=== PATIENT | male | born 1945 | race Caucasian/White ===

== ENCOUNTER → 2018-12-01 12:59 | Outpatient (CLI) | payer MEDICARE, SELFPAY ==
[2018-12-01 13:40] LABS: Cholesterol 199 mg/dL (140-199); HDL Cholesterol 50 mg/dL (40-60); LDL Cholesterol Calculated 133 mg/dL (<100); Triglycerides 81 mg/dL (35-150)
[2018-12-01 14:10] LABS: Prostate Specific Antigen Scrn 2.28 ng/mL (0.1-4.0)
[2018-12-01 17:23] LABS: Vitamin D 25 Hydroxy (D3) 15.5 ng/mL (30.0-100.0)
== END ==
PROVIDERS: Visit Provider Student in an Organized Health Care Education/Training Program
DX: E55.9 Vitamin D deficiency, unspecified (principal); Z12.5 Encounter for screening for malignant neoplasm of prostate; E78.2 Mixed hyperlipidemia
CPT/HCPCS: 36415; 80061; 82306; G0103

== ENCOUNTER 2019-02-12 18:54 | Emergency (ER) | payer MEDICARE, SELFPAY ==
[2019-02-12 19:12] VITALS: BP 152/82; PULSE 80; RESP 18; TEMP 36.6; O2SAT 96
--- NOTE | 2019-02-12 19:15 | ED.GENADULT ---
HPI - General Adult General Chief complaint: Trauma Stated complaint: fall about 8-10ft, wound back of head,back pain Time Seen by Provider: 02/12/19 19:11 Source: patient Mode of arrival: Ambulatory Limitations: no limitations History of Present Illness HPI narrative: 73-year-old male not on anticoagulation here for evaluation of injuries that he sustained when he fell off of/through the a deck that he was working on. He did hit his head because he has a laceration on back of his head. He does not report any loss of consciousness. Arrived by private vehicle. Was complaining of abdominal pain right-sided chest pain. Does have bruising to his left arm. No chest pain or shortness of breath. Related Data Home Medications Medication Instructions Recorded Confirmed ASPIRIN CHEW - 81 mg PO Q DAY #0 04/26/06 09/29/18 (ASPIRIN) Allergies Allergy/AdvReac Type Severity Reaction Status Date / Time Penicillins Allergy Mild rash Verified 09/29/18 13:35 bismuth Allergy Mild rash Uncoded 09/29/18 13:36 Review of Systems Constitutional Constitutional: Denies fever(s) and Denies headache(s) Eyes Eyes: Denies change in vision ENT Ears, Nose, Mouth, and Throat: Denies headache(s), Reports neck pain and Denies sore throat Cardiovascular Cardiovascular: Denies chest pain and Denies dyspnea Comments: Right-sided lateral chest wall pain Respiratory Respiratory: Denies dyspnea Gastrointestinal Gastrointestinal: Denies abdominal pain, Denies nausea and Denies vomiting Genitourinary Genitourinary: Denies dysuria Musculoskeletal Musculoskeletal: Reports back pain, Reports myalgias (Left forearm), Denies arthralgias and Reports neck pain Integumentary/Breasts Comments: Bruising the left forearm laceration the back that had Neurologic Neurologic: Denies behavioral changes and Denies headache(s) Psychiatric Psychiatric: Denies behavioral changes Hematologic/Lymphatic Hematologic/Lymphatic: Denies easy bleeding and Denies easy bruising Patient History Medical History Benign prostatic hyperplasia (Chronic ~2009) Cataracts, bilateral (Chronic ~2005) Chicken pox (Resolved ~1954) Colon polyps (Chronic ~2005) Fractures (Resolved) Hemorrhoid (Chronic) Measles (Resolved ~1954) Mumps (Resolved ~1954) Stroke (Chronic ~1995) Surgical History Anesthesia (Resolved) Family History Father Stroke Mother History of heart disease Grandfather Diabetes mellitus Grandmother Cancer Grandfather Cancer Grandmother Polio Social History Smoking Status: Never smoker alcohol intake: current (occasionally) substance use type: does not use Exam Initial Vital Signs Initial Vital Signs: Vital Signs Temperature 97.9 F 02/12/19 19:12 Pulse Rate 80 02/12/19 19:12 Respiratory Rate 18 02/12/19 19:12 Blood Pressure 152/82 H 02/12/19 19:12 Pulse Oximetry 96 02/12/19 19:12 Const General: cooperative, comfortable, well developed and well groomed Orientation: alert, awake and oriented x3 HENMT Head: laceration Ears: hearing grossly normal bilaterally Nose: external nose normal Face and sinus: normal facial exam Mouth: oral mucosae normal Eyes Pupils: PERRL Chest Chest: normal inspection of the chest, No crepitus and tenderness (Right lateral chest wall) Resp Effort & Inspection: normal respiratory effort Auscultation: clear to auscultation bilaterally Cardio Rate: regular rate Rhythm: regular rhythm Pulses: radial pulses present GI Inspection: distended Palpation: soft, No firm and tender (Diffusely tender) Back/Spine/Pelvis Cervical Spine: No collar present and cervical spinal tenderness Thoracic/Lumbar Spine: thoracic spinal tenderness and No lumbar spinal tenderness Skin Other: Patient with a palm size area bruising to the left volar aspect of his forearm. Patient with a 3 cm laceration to the occipital portion of his scalp. Neuro General: alert and oriented x3 Cranial Nerves: CN's II-XI intact bilaterally Cognition: normal cognition Speech: speech normal Sensory Exam: no sensory deficits noted Extrem Other: Pelvis stable, lower extremities unremarkable. Right upper extremity unremarkable. Patient has full range of motion of the left shoulder left elbow and left wrist Psych Appearance: grossly normal and well kempt Procedures Laceration Repair Laceration 1: Site: scalp Size (cm): 3 Description: irregular Depth: simple, single layer Local Anesthetic: lidocaine 1% Amount of anesthesia used (mL): 2 Pre-repair: irrigated extensively Skin layer closed with: other (Three shruthi) Scores GCS Kristen coma scale eye opening: Spontaneous Kristen coma scale verbal response: Orientated Kristen coma scale motor response: Obey commands Kristen coma scale total score: 15 Nexus Score for C-Spine Focal Neurologic deficit present: No Midline spinal tenderness present: Yes Altered level of conciousness present: No Intoxication present: No Distracting Injury Present: No Nexus Criteria for C-spine: 1 Course Orders Ordered: ED Orders 02/12/19 19:16 XR forearm LT 2V Stat XR ribs RT min 3V w CXR1V Stat 02/12/19 19:17 CT abdomen pelvis w con Stat CT cervical spine wo con Stat CT head/brain wo con Stat 02/12/19 20:25 Basic Metabolic Panel Stat Complete Blood Count AUTO DIFF Stat Partial Thromboplastin Time Stat Prothrombin Time INR Stat Discontinued Medications Diphtheria/Tetanus/Acell Pertussis (Adacel) 0.5 ml IM .ONCE ONE Stop: 02/12/19 21:35 Last Admin: 02/12/19 21:42 Dose: 0.5 ml Documented by: NORA Sodium Chloride (Normal Saline 0.9%) 1,000 mls @ 1,000 mls/hr IV BOLUS ONE Stop: 02/12/19 20:15 Last Infusion: 02/12/19 20:55 Dose: 0 mls/hr Documented by: Admin: 02/12/19 20:02 Dose: 1,000 mls/hr Documented by: KARINE Ibuprofen (Advil) 800 mg PO NOW ONE Stop: 02/12/19 21:35 Last Admin: 02/12/19 21:42 Dose: 800 mg Documented by: NORA Lidocaine HCl (Xylocaine 1% (Pf)) 4 ml INJ NOW ONE Stop: 02/12/19 19:17 Last Admin: 02/12/19 20:01 Dose: 2 ml Documented by: KARINE Vital Signs Vital signs: Vital Signs - 8 hr 02/12/19 19:12 02/12/19 20:17 Temperature 97.9 F Pulse Rate 80 84 Respiratory Rate 18 Blood Pressure 152/82 H Blood Pressure [Left Arm] 150/81 H Pulse Oximetry 96 94 Medical Decision Making Lab Data Lab results reviewed: Yes I reviewed the patient's lab results. Result diagrams: 02/12/19 20:25 02/12/19 20:25 Labs: Lab Results 02/12/19 02/12/19 02/12/19 Range/Units 20:25 20:25 20:25 WBC 10.0 (4.5-11.0) X10^3/uL RBC 4.33 L (4.5-5.9) X10^6/uL Hgb 14.0 (13.5-17.5) g/dL Hct 41.1 (41-53) % MCV 94.8 (80-100) fL MCH 32.4 (26-34) PG MCHC 34.1 (30-36) % RDW 14.4 (11.6-14.8) % Plt Count 212 (150-400) X10^3/uL Neut % (Auto) 90.6 H (50-75) % Lymph % (Auto) 4.2 L (25-40) % Tompkins % (Auto) 4.7 (3-14) % Eos % (Auto) 0.3 L (2-4) % Baso % (Auto) 0.2 (0-2) % Neut # (Auto) 9000 H (7937-1267) /uL Lymph # (Auto) 400 L (4965-3394) /uL Tompkins # (Auto) 500 (0-900) /uL Eos # (Auto) 0 (0-450) /uL Baso # (Auto) 0 (0-100) /uL PT 11.7 (10.1-12.7) SECONDS INR 1.0 (0.9-1.3) APTT 31 (26.4-36.2) SECONDS Sodium 138 (137-145) mmol/L Potassium 3.7 (3.4-5.1) mmol/L Chloride 104 (98-107) mmol/L Carbon Dioxide 26 (22-32) mmol/L BUN 17 (9-20) mg/dL Creatinine 0.90 (0.66-1.25) mg/dL Estimated GFR > 60.0 (>60) mL/min BUN/Creatinine Ratio 18.9 (6-22) Glucose 160 H (80-110) mg/dL Calcium 8.9 (8.4-10.2) mg/dL Imaging Data Forearm x-ray: Radiologist's impression: [address] [address] XRay Report Signed Patient: Abhinav Mir R#: [id number] : 8Acct:[id number] Age/Sex: 73 / MDate of Service: 02/12/19 Loc: ED Accession Number: [id number] Procedure: XR forearm LT 2V Ordering Provider: Hector Day D.O. PROCEDURE: XR FOREARM RT 2V INDICATIONS: fall with distal radius ulna pain TECHNIQUE: 2 views of the forearm were acquired. COMPARISON: None. FINDINGS: Bones: No fractures or dislocations. No suspicious bony lesions. Soft tissues: No suspicious soft tissue calcifications or masses. IMPRESSION: No acute fracture. No osseous lesion. If clinical suspicion and/or symptoms persist, further assessment with repeat plainfilms, or advanced imaging (e.g., CT, MRI, or bone scan) may be helpful for further assessment. Dictated by: Hoa Parada M.D. on 02/12/2019 at 20:28 Approved by: Hoa Parada M.D. on 02/12/2019 at 20:28 Rib x-ray: Radiologist's impression: [place] [address] XRay Report Signed Patient: Abhinav Mir R#: [id number] : 8Acct:[id number] Age/Sex: 73 / MDate of Service: 02/12/19 Loc: ED Accession Number: [id number] Procedure: XR ribs RT min 3V w CXR1V Ordering Provider: Hector Day D.O. PROCEDURE: XR RIBS RT MIN 3V W CXR 1V INDICATIONS: fall right chest wall pain TECHNIQUE: 3 views of the left ribs were acquired, along with a single view chest. COMPARISON: None. FINDINGS: Surgical changes and devices: None. Bones and chest wall: No fractures or dislocations. No suspicious bony lesions. Overlying soft tissues appear unremarkable. Lungs and pleura: No pleural effusions or pneumothorax. Mild bilateral perihilar opacity, consistent with atelectasis. Mediastinum: Mediastinal contours appear normal. Heart size is normal. IMPRESSION: No acute fracture. No osseous lesion. If clinical suspicion and/or symptoms persist, further assessment with repeat plainfilms, or advanced imaging (e.g., CT or bone scan) may be helpful for further assessment. Dictated by: Hoa Parada M.D. on 02/12/2019 at 20:27 Approved by: Hoa Parada M.D. on 02/12/2019 at 20:27 CT scan - abdomen: Radiologist's impression: Abhinav Mir 73 M 1945 [place] [address] CT Scan Report Signed Patient: Abhianv Mir WMR#: [id number] : 1945cct:[id number] Age/Sex: 73 / MDate of Service: 02/12/19 Loc: ED Accession Number: [id number] Procedure: CT abdomen pelvis w con Ordering Provider: Hector Day D.O. PROCEDURE: CT ABDOMEN PELVIS W CON INDICATIONS: Fell with generalized abdominal pain TECHNIQUE: After the administration of intravenous contrast, 5 mm thick sections acquired from the diaphragm to the symphysis. 5 mm coronal and sagittal reformats were acquired. For radiation dose reduction, the following was used: automated exposure control, adjustment of mA and/or kV according to patient size. COMPARISON: None. FINDINGS: Image quality: Excellent. ABDOMEN: Lung bases: There is mild dependent bibasilar atelectasis. Heart size is normal. Solid organs: Liver is normal in size. Right hepatic lobe cysts are present. Gallbladder is contracted. Biliary system is non dilated. Pancreas enhances normally. Spleen is normal in size and enhancement. No adrenal nodules. Kidneys demonstrate normal size and enhancement, without hydronephrosis. Peritoneum and bowel: Bowel loops demonstrate normal wall thickness and caliber. No free fluid or air. Appendix not seen. No evidence of appendicitis. Nodes and vessels: No retroperitoneal or mesenteric adenopathy by size criteria. Aorta and inferior vena cava are normal in size. Miscellaneous: No ventral hernias. PELVIS: Genitourinary: Mild diffuse urinary bladder thickening. 18 mm diameter diverticulum of the right posterior bladder. Miscellaneous: No inguinal hernias or adenopathy. Bones: There is moderate acute wedging of T9. There is roughly 6 mm of retropulsion at the T9 level, with moderate resulting canal stenosis. There are mildly displaced fractures of the bilateral T9 pars interarticularis. There is a minimally displaced T8 spinous process fracture. IMPRESSION: 1. T8 and T9 fractures as described above. 2. Mild urinary bladder thickening, possibly indicating cystitis. Recommend correlation with urinalysis. 3. Appendix not seen. No evidence of appendicitis. Dictated by: Hoa Parada M.D. on 02/12/2019 at 20:31 Approved by: Hoa Parada M.D. on 02/12/2019 at 20:[address] C-[address]: Radiologist's impression: [place] [address] CT Scan Report Signed Patient: Abhinav Mir WMR#: [id number] : 8Acct:[id number] Age/Sex: 73 / MDate of Service: 02/12/19 Loc: ED Accession Number: [id number] Procedure: CT cervical spine wo con Ordering Provider: Hector Day D.O. PROCEDURE: CT CERVICAL SPINE WO CON INDICATIONS: Fall with posterior midline pain TECHNIQUE: Noncontrast 3 mm thick sections acquired from the skull base to the T4 level. Sagittal and coronal reformats were then constructed. For radiation dose reduction, the following was used: automated exposure control, adjustment of mA and/or kV according to patient size. COMPARISON: None. FINDINGS: Image quality: Excellent. Bones: No fractures or dislocations. Visualized superior ribs are intact. Multilevel disc space narrowing and endplate osteophyte formation. Multilevel facet hypertrophy. Soft tissues: Prevertebral soft tissues are normal in thickness. No paravertebral hematomas. No apical pneumothoraces. IMPRESSION: 1. Multilevel degenerative disc and facet disease. 2. No fracture. Dictated by: Hoa Parada M.D. on 02/12/2019 at 20:35 Approved by: Hoa Parada M.D. on 02/12/2019 at 20:36 CT scan - head: Radiologist's impression: [address] [address] [address] Scan Report Signed Patient: Abhinav Mir WMR#: [id number] : 8Acct:[id number] Age/Sex: 73 / MDate of Service: 02/12/19 Loc: ED Accession Number: [id number] Procedure: CT head/brain wo con Ordering Provider: Hector Day D.O. PROCEDURE: CT HEAD/BRAIN WO CON INDICATIONS: Fell, hit head, posterior laceration TECHNIQUE: Noncontrast 4.5 mm thick angled axial sections acquired from the foramen magnum to the vertex, with coronal and sagittal reformats. For radiation dose reduction, the following was used: automated exposure control, adjustment of mA and/or kV according to patient size. COMPARISON: None. FINDINGS: Image quality: Excellent. CSF spaces: Basal cisterns are patent. No extra-axial fluid collections. The ventricles are symmetric in size and shape. Brain: No intracranial bleeds or masses. There is a moderate chronic left posterior lateral frontal lobe infarct. There is cerebral volume loss for age, with resultant ventricular and sulcal prominence. There are periventricular and deep white matter chronic small vessel ischemic changes. There is intracranial internal carotid artery atherosclerosis. Skull and face: Calvarium and visualized facial bones appear intact, without suspicious lesions. Sinuses: Visualized sinuses and mastoids are clear. IMPRESSION: 1. No acute process. 2. Chronic left frontal lobe infarct. Dictated by: Hoa Parada M.D. on 02/12/2019 at 20:36 Approved by: Hoa Parada M.D. on 02/12/2019 at 20:37 [facility] Narrative Medical decision making narrative: Modified trauma called given the mechanism. He was neurovascularly intact. Arrived by private vehicle not in a cervical collar. One was placed once he had midline cervical spinal tenderness on exam. Head CT cervical spine CT unremarkable. The laceration of ankle his head was cleaned. His tetanus was updated. Was closed with 3 shruthi. Left forearm x-ray unremarkable. The abrasions on his left forearm were covered with a bandage. CT scan of his abdomen showed no intra-abdominal pathology however does show T8 and T9 spinal fractures. I did discuss the case with Dr. Hayes with Orthopedics reviewed the CT scan who was concerned about a 3 column injury at the T9 area. We then contacted [facility]. I discussed the case with with Neurosurgery who did state that this looked like a chance fracture which is an unstable fracture. I discussed the case with Dr. Vásquez with the trauma service at [facility] who accepts the patient in transfer. I then discussed the case with Dr. Montelongo ED attending at [facility] to give report. I discussed the transfer with the patient. He expressed understanding and agreement. Patient is stable for transfer. Discharge Plan Departure Patient Disposition: [facility] Clinical Impression: Closed T8 spinal fracture Qualifiers: Encounter type: initial encounter Fracture morphology: unspecified fracture morphology Qualified Code(s): S22.069A - Unspecified fracture of T7-T8 vertebra, initial encounter for closed fracture Closed T9 spinal fracture Qualifiers: Encounter type: initial encounter Fracture morphology: burst- unstable Qualified Code(s): S22.072A - Unstable burst fracture of T9-T10 vertebra, initial encounter for closed fracture Laceration of scalp Qualifiers: Encounter type: initial encounter Qualified Code(s): S01.01XA - Laceration without foreign body of scalp, initial encounter Abrasion of arm, left Qualifiers: Encounter type: initial encounter Qualified Code(s): S40.812A - Abrasion of left upper arm, initial encounter Prescriptions: No Action ASPIRIN CHEW - (ASPIRIN) 81 mg PO Q DAY Qty: 0 RF: 0
--- NOTE | 2019-02-12 19:38 | PC.NURSE ---
Pt has pain right rib area,abdominal tenderness,pain on palption midline of neck. Pt also has an abrasion and swelling left wrist. Pt has lac posterior head.
--- NOTE | 2019-02-12 19:42 | PC.NURSE ---
iv patent unable to draw blood
[2019-02-12] MEDS: LIDOCAINE 1% (PF) 4 ML INJ (20:01)
[2019-02-12] MEDS: SODIUM CHLORIDE 0.9% 1,000 ML 1000 ML IV (20:02)
[2019-02-12 20:17] VITALS: BP 150/81; PULSE 84; O2SAT 94
[2019-02-12 20:36] LABS: Add Manual Diff / Slide Review NO; Basophils Absolute Auto 0 /uL (0-100); Basophils Percent Auto 0.2 % (0-2); Eosinophils Absolute Auto 0 /uL (0-450); Eosinophils Percent Auto 0.3 % (2-4); Hematocrit 41.1 % (41-53); Lymphocytes Absolute Auto 400 /uL (1100-4500); Lymphocytes Percent Auto 4.2 % (25-40); Mean Corpuscular HGB Conc 34.1 % (30-36); Mean Corpuscular Hemoglobin 32.4 PG (26-34); Mean Corpuscular Volume 94.8 fL (80-100); Monocytes Absolute Auto 500 /uL (0-900); Monocytes Percent Auto 4.7 % (3-14); Neutrophils Absolute Auto 9000 /uL (1500-7000); Neutrophils Percent Auto 90.6 % (50-75); Platelet Count 212 X10^3/uL (150-400); Red Blood Cell Count 4.33 X10^6/uL (4.5-5.9); Red Cell Distribution Width 14.4 % (11.6-14.8)
[2019-02-12 20:40] LABS: Prothrombin Time 11.7 SECONDS (10.1-12.7)
[2019-02-12 20:43] LABS: PTT Partial Thromboplastin Tim 31 SECONDS (26.4-36.2)
[2019-02-12 20:44] LABS: BUN Creatinine Ratio 18.9 (6-22); Blood Urea Nitrogen 17 mg/dL (9-20); Calcium 8.9 mg/dL (8.4-10.2); Carbon Dioxide 26 mmol/L (22-32); Chloride 104 mmol/L (98-107); Estimated Glomerular Filt Rate > 60.0 mL/min (>60); Glucose 160 mg/dL (80-110); HEMOLYSIS < 15 (0-50); Potassium 3.7 mmol/L (3.4-5.1); Sodium 138 mmol/L (137-145)
[2019-02-12] MEDS: TET,DIPH,PERTUSS(ACELL),VAC/PF 0.5 ML SYRINGE IM (21:42)
[2019-02-12] MEDS: IBUPROFEN 400 MG TABLET 800 MG PO (21:42)
[2019-02-12 22:37] VITALS: BP 133/71; PULSE 90; RESP 15; O2SAT 95
== END 2019-02-12 23:21 | disposition short-term general hospital (02) ==
PROVIDERS: Emergency Provider Emergency Medicine
DX: S22.069A Unspecified fracture of T7-T8 vertebra, initial encounter for closed fracture (principal); S22.072A Unstable burst fracture of T9-T10 vertebra, initial encounter for closed fracture; S01.01XA Laceration without foreign body of scalp, initial encounter; S40.812A Abrasion of left upper arm, initial encounter; R07.89 Other chest pain; M54.2 Cervicalgia; Z23 Encounter for immunization; R79.89 Other specified abnormal findings of blood chemistry; W17.89XA Other fall from one level to another, initial encounter
CPT/HCPCS: 12001; 36415; 70450; 71101; 72125; 73090; 74177; 80048; 85025; 85610; 85730; 90471; 96360; 99283; 99284; 90715; Q9967

== ENCOUNTER → 2019-06-30 10:18 | Outpatient (CLI) | payer MEDICARE, SELFPAY ==
--- NOTE | 2019-06-30 | DI.RAD.S_ITS ---
PROCEDURE: XR THORACIC SPINE 3V INDICATIONS: CLOSED UNSTABLE BURST FRACTURE OF NINTH THORACIC VERTEBRA WI TECHNIQUE: 3 views of the thoracic spine were acquired. COMPARISON: [facility], CT, CT ABDOMEN PELVIS W CON, 02/12/2019, 19:37. [facility], CT, CT CERVICAL SPINE WO CON, 02/12/2019, 19:37. FINDINGS: Bones: There is a focal fracture seen involving the T9 level, with at least 80% loss of height anteriorly. Mild posterior displacement of fracture fragments can be seen. No additional fractures are detected. The T8 fracture that can be seen on the prior CT is not appreciated on this plain film study. No suspicious lytic or blastic lesions are seen. Age-appropriate bony degenerative changes are seen. Soft tissues: No paravertebral stripe thickening. IMPRESSION: T9 fracture, which has progressed compared to the prior CT dated 02/12/19. Dictated by: Misha Davis M.D. on 06/30/2019 at 11:24 Approved by: Misha Davis M.D. on 06/30/2019 at 11:27
== END ==
PROVIDERS: PCP Student in an Organized Health Care Education/Training Program; Referring Provider Neurological Surgery; Visit Provider Neurological Surgery
DX: S22.072A Unstable burst fracture of T9-T10 vertebra, initial encounter for closed fracture (principal)
CPT/HCPCS: 72072

== ENCOUNTER → 2019-08-19 09:26 | Outpatient (CLI) | payer MEDICARE, SELFPAY ==
--- NOTE | 2019-08-19 09:36 | DI.RAD.S_ITS ---
PROCEDURE: XR THORACIC SPINE 3V INDICATIONS: BURST FRACTURE OF THORACIC TECHNIQUE: 3 views of the thoracic spine were acquired. COMPARISON: [facility], CT, CT ABDOMEN PELVIS W CON, 02/12/2019, 19:37. [facility], CR, XR THORACIC SPINE 3V, 06/30/2019, 10:24. FINDINGS: Bones: There is a burst fracture seen at T9, with at least 80% loss of height anteriorly. This is not significantly changed compared to the prior examination. No new fractures or dislocations. No suspicious bony lesions. 12 pairs of ribs are noted, and appear intact where visualized. Soft tissues: No paravertebral stripe thickening. IMPRESSION: Stable T9 burst fracture, with at least 80% loss of height anteriorly. Dictated by: Misha Davis M.D. on 08/19/2019 at 9:38 Approved by: Misha Davis M.D. on 08/19/2019 at 9:41
== END ==
PROVIDERS: PCP Student in an Organized Health Care Education/Training Program; Referring Provider Neurological Surgery; Visit Provider Neurological Surgery
DX: S22.072 Unstable burst fracture of T9-T10 vertebra (principal)
CPT/HCPCS: 72072

== ENCOUNTER → 2020-03-07 07:11 | Outpatient (CLI) | payer MEDICARE, SELFPAY ==
[2020-03-07 07:52] LABS: Add Manual Diff / Slide Review NO; Basophils Absolute Auto 0 /uL (0-100); Basophils Percent Auto 0.8 % (0-2); Eosinophils Absolute Auto 200 /uL (0-450); Eosinophils Percent Auto 4.3 % (2-4); Hematocrit 42.4 % (41-53); Hemoglobin 14.3 g/dL (13.5-17.5); Lymphocytes Absolute Auto 1500 /uL (1100-4500); Lymphocytes Percent Auto 29.1 % (25-40); Mean Corpuscular HGB Conc 33.7 % (30-36); Mean Corpuscular Hemoglobin 31.9 PG (26-34); Mean Corpuscular Volume 94.8 fL (80-100); Monocytes Absolute Auto 500 /uL (0-900); Monocytes Percent Auto 9.6 % (3-14); Neutrophils Absolute Auto 2900 /uL (1500-7000); Neutrophils Percent Auto 56.2 % (50-75); Platelet Count 215 X10^3/uL (150-400); Red Blood Cell Count 4.47 X10^6/uL (4.5-5.9); Red Cell Distribution Width 14.5 % (11.6-14.8); White Blood Cell Count 5.1 X10^3/uL (4.5-11.0)
[2020-03-07 08:20] LABS: Alanine Aminotransferase 21 IU/L (<50); Albumin 3.8 g/dL (3.5-5.0); Albumin Globulin Ratio 1.2 (1.0-2.8); Alkaline Phosphatase 72 U/L (38-126); Aspartate Aminotransferase 34 IU/L (17-59); BUN Creatinine Ratio 18.8 (6-22); Bilirubin Total 0.3 mg/dL (0.2-1.3); Blood Urea Nitrogen 15 mg/dL (9-20); Calcium 8.8 mg/dL (8.4-10.2); Carbon Dioxide 32 mmol/L (22-32); Chloride 106 mmol/L (98-107); Cholesterol 179 mg/dL (140-199); Estimated Glomerular Filt Rate > 60.0 mL/min (>60); Globulin 3.1 g/dL (1.7-4.1); Glucose 97 mg/dL (80-110); HDL Cholesterol 33 mg/dL (40-60); HEMOLYSIS < 15 (0-50); LDL Cholesterol Calculated 114 mg/dL (<100); Potassium 4.2 mmol/L (3.4-5.1); Sodium 140 mmol/L (137-145); Total Protein 6.9 g/dL (6.3-8.2); Triglycerides 161 mg/dL (35-150)
[2020-03-07 08:49] LABS: Prostate Specific Antigen Scrn 3.07 ng/mL (0.1-4.0)
[2020-03-07 09:28] LABS: Vitamin D 25 Hydroxy (D3) 45.9 ng/mL (30.0-100.0)
== END ==
PROVIDERS: PCP Student in an Organized Health Care Education/Training Program; Referring Provider Student in an Organized Health Care Education/Training Program; Visit Provider Student in an Organized Health Care Education/Training Program
DX: E55.9 Vitamin D deficiency, unspecified (principal); Z12.5 Encounter for screening for malignant neoplasm of prostate; Z00.00 Encounter for general adult medical examination without abnormal findings; Z13.220 Encounter for screening for lipoid disorders
CPT/HCPCS: 36415; 80053; 80061; 82306; 85025; G0103

== ENCOUNTER → 2020-05-07 08:37 | Outpatient (CLI) | payer MEDICARE, SELFPAY ==
[2020-05-07 11:09] LABS: COVID19 -Nasal RAPID Negative (Negative)
== END ==
PROVIDERS: PCP Student in an Organized Health Care Education/Training Program; Visit Provider Physician Assistant
DX: Z20.822 Contact with and (suspected) exposure to COVID-19 (principal)
CPT/HCPCS: 87635; C9803

== ENCOUNTER 2020-05-08 09:07 | Day surgery (SDC) | payer MEDICARE, SELFPAY ==
[2020-05-08 09:19] VITALS: BP 122/80; PULSE 71; RESP 16; TEMP 36.4; O2SAT 99
[2020-05-08] MEDS: PROPARACAINE 0.5% OPHTH SOL 2 DROPS EYE-OP (09:38)
[2020-05-08] MEDS: CATARACT EYE COMPOUND (10 DROPS/SYRINGE) 3 DROPS EYE-OP (09:39)
--- NOTE | 2020-05-08 09:54 | P.OP_ITS ---
Operative Date/Time/Diagnoses Pre-op diagnosis: Nuclear Cataract Left eye Post-op diagnosis: same Procedure & Clinicians Same procedure as scheduled: Yes Surgeon: Juan Miguel Rodriguez Anesthesia Type: MAC +/- and Sedation Operative Notes Procedure in detail: Patient brought to the operating suite. Tetracaine drops placed in the left eye. Patient was prepped and draped in sterile manner. Wire lid speculum was placed in the eye. Betadine drops were placed on the eye. This was irrigated. Lidocaine jelly was placed on the eye. A paracentesis port was created with a side-port blade. 0.1 mL 1% preservative free lidocaine was injected into the anterior chamber. The anterior chamber was deepened with viscoelastic. 2.6 mm keratome was used to create a temporal clear corneal incision. Cystotome and Utrata forceps were used to create continuous tear capsulorrhexis. Balanced salt solution was used to hydro dissect the nucleus. The phacoemulsification handpiece was inserted and the nucleus was removed using the stop and chop technique. The irrigation aspiration handpiece was inserted and the remaining cortex was removed. Anterior chamber was deepened with viscoe lastic. An Abad ZCB00 intraocular lens with a power of 17.5 was injected into the capsular bag. Irrigation aspiration handpiece was inserted and the remaining viscoelastic was removed. Incision was hydrated with balanced salt solution and found to be leak free with pressure with Weck-Ronna sponges. 0.1 mL Vigamox injected anterior chamber. 0.3 mL Kenalog 10 mg was injected subconjunctivally. Lid speculum was removed. The patient left the operating room in excellent condition. Complications: none Post-operative Condition: stable Disposition: same day surgery
--- NOTE | 2020-05-08 09:54 | PM.PREOP ---
Pre-operative Note Interval Note History & Physical reviewed/Exam performed by Physician: Yes Changes to H&P: No
[2020-05-08] MEDS: LIDOCAINE JELLY 2% 5 ML 1 APPLIC TOP (10:14)
[2020-05-08] MEDS: PHENYLEPHRINE/LIDOCAINE VIAL (OR) 0.2 ML EYE-OP (10:14)
[2020-05-08] MEDS: TRIAMCINOLONE 50 MG/5 ML VIAL INJ (10:14)
[2020-05-08] MEDS: CHONDROIDTIN/SOD HYALURONATE 1.05 ML SYRINGE INTRAOCULA (10:14)
[2020-05-08] MEDS: MOXIFLOXACIN INJ 5 MG/ML VIAL EYE-OP (10:14)
[2020-05-08] MEDS: TETRACAINE 0.5% OPHTH DROPS 4 ML 2 DROPS EYE-OP (10:15)
[2020-05-08] MEDS: BALANCED SALT IRRIG SOLN NO.2 500 ML, EPINEPHrine 1 MG IRR (10:15)
[2020-05-08 10:44] VITALS: BP 117/73; PULSE 61; RESP 16; TEMP 36.5; O2SAT 99
== END 2020-05-08 10:45 | disposition home or self-care (01) ==
PROVIDERS: PCP Student in an Organized Health Care Education/Training Program; Referring Provider Ophthalmology; Visit Provider Ophthalmology
PROC: (CPT 66984; principal; 2020-05-08 10:45)
DX: H25.12 Age-related nuclear cataract, left eye (principal)
CPT/HCPCS: 66984; J0171; J2250; J3301

== ENCOUNTER → 2020-06-21 16:20 | Outpatient (CLI) | payer MEDICARE, SELFPAY ==
[2020-06-21] MEDS: COVID-19 VACC, Ad26(JANSSEN)/PF 0.5 ML IM (16:28)
== END ==
PROVIDERS: PCP Student in an Organized Health Care Education/Training Program; Visit Provider Internal Medicine
DX: Z23 Encounter for immunization (principal)
CPT/HCPCS: 0031A; 91303

== ENCOUNTER → 2020-06-29 07:01 | Outpatient (CLI) | payer MEDICARE, SELFPAY ==
[2020-06-29 08:45] LABS: Cholesterol 209 mg/dL (140-199); HDL Cholesterol 41 mg/dL (40-60); LDL Cholesterol Calculated 140 mg/dL (<100); Triglycerides 139 mg/dL (35-150)
== END ==
PROVIDERS: PCP Student in an Organized Health Care Education/Training Program; Referring Provider Student in an Organized Health Care Education/Training Program; Visit Provider Student in an Organized Health Care Education/Training Program
DX: E78.5 Hyperlipidemia, unspecified (principal); Z79.899 Other long term (current) drug therapy
CPT/HCPCS: 36415; 80061

== ENCOUNTER → 2023-06-04 09:37 | Outpatient (CLI) | payer MEDICARE, SELFPAY ==
[2023-06-06 17:31] LABS: Prostate Specific Antigen Scrn 7.44 ng/mL (0.1-4.0)
== END ==
PROVIDERS: PCP Student in an Organized Health Care Education/Training Program; Referring Provider Urology; Visit Provider Urology
DX: R97.20 Elevated prostate specific antigen [PSA] (principal); Z80.42 Family history of malignant neoplasm of prostate
CPT/HCPCS: 36415; 84153; G0103

== ENCOUNTER 2024-05-05 11:58 | Emergency (ER) | payer MEDICARE, SELFPAY ==
[2024-05-05 12:05] VITALS: PULSE 95; RESP 14; TEMP 36.4; BMI 27.3
--- NOTE | 2024-05-05 12:16 | DI.RAD.S_ITS ---
PROCEDURE: XR FINGER LT MIN 2V INDICATIONS: cut with a table saw 3 days ago TECHNIQUE: AP hand, 2 views of the 3rd finger(s) acquired. COMPARISON: None. FINDINGS: Bones: No fractures or dislocations. No suspicious bony lesions. Soft tissues: No suspicious soft tissue calcifications. No radiopaque foreign body. No soft tissue gas. IMPRESSION: No acute bony abnormality. Dictated by: Maykel Jasso M.D. on 05/05/2024 at 12:45 Approved by: Maykel Jsaso M.D. on 05/05/2024 at 12:51
--- NOTE | 2024-05-05 12:18 | ED_ITS ---
<Statement entered by Jonathan Paige DO - 05/13/24 06:59> Dr. Paige: I was immediately available in the department for consultation. I did not actually see the patient. HPI - Wound/Laceration General Chief Complaint: Wound/Laceration Stated Complaint: hand laceration swollen and painful x3 Time Seen by Provider: 05/05/24 12:18 Source: patient Mode of arrival: Ambulatory History of Present Illness HPI narrative: Mr. Mir is a pleasant 78-year-old male with a past medical history of hyperlipidemia, erectile dysfunction, new diagnosis of prostate cancer who presents to the emergency department for left hand laceration that occurred on Thursday from a table saw. Patient lacerated the dorsal aspect of his left middle finger. He was not able to come to the ED at that time because he was in [place] starting evaluation for his new diagnosis of prostate cancer. This morning when he woke up the left hand was red and swollen which prompted his ED arrival. He is unsure of his last tetanus shot. He denies any injury to the surrounding fingers or left hand. He denies fevers, chills, chest pain, shortness of breath, nausea, vomiting. He has no history of diabetes or blood thinner use except for aspirin. Reports that when he was a child he was told he was allergic to penicillins which was a rash. Related Data Home Medications Medication Instructions Recorded Confirmed aspirin 81 mg chewable tablet 81 mg PO DAILY 02/22/20 05/08/20 Previous Rx's Medication Instructions Recorded sildenafil (pulm.hypertension) 20 20 - 100 mg (1 - 5 x 20 mg) PO 02/22/20 mg tablet DAILY PRN sexual activity #30 tabs pravastatin 20 mg tablet 20 mg PO BEDTIME #90 tabs 03/09/20 doxycycline hyclate 100 mg capsule 100 mg PO BID 7 days #14 caps 05/05/24 Allergies Allergy/AdvReac Type Severity Reaction Status Date / Time bismuth subsalicylate Allergy Mild Rash Verified 05/08/20 09:41 Penicillins Allergy Mild rash Verified 05/08/20 09:41 Review of Systems Review of Systems ROS Unobtainable: All systems reviewed & are unremarkable except as noted in HPI and below Patient History Medical History (Updated 05/05/24 @ 14:19 by Genesis Singh PA-C) Stroke (~1995) Fractures Mumps (~1954) Measles (~1954) Chicken pox (~1954) Cataracts, bilateral (~2005) Benign prostatic hyperplasia (~2009) Hemorrhoid Colon polyps (~2005) Surgical History Anesthesia Family History Father Stroke Mother History of heart disease Grandfather Diabetes mellitus Grandmother Cancer Grandfather Cancer Grandmother Polio Social History household members: spouse Smoking Status: Never smoker alcohol intake: current substance use type: does not use Smoking Status: Never smoker alcohol intake frequency: a few times a month Exam Narrative Exam Narrative: GENERAL: 78 year old patient appears stated age. Well-developed patient, in no acute distress. HEAD: Atraumatic. Normocephalic. CARDIOVASCULAR: Regular rate RESPIRATORY: ?Nonlabored respirations. ?Speaking in clear, full sentences. EXTREMITIES: Left hand with dorsal erythema, edema most notably over 3rd/middle finger. Band-Aid was removed revealing a 3 cm x 1 cm laceration on the distal aspect of the dorsal left 3rd finger. No nail bed involvement. Laceration is clearly old with no active bleeding, surrounding blanched skin due to Band-Aid. Brisk capillary refill distal to the wound. Limited range of motion of the DIP and PIP secondary to pain and swelling. SKIN: Erythema of dorsal left hand otherwise no streaking erythema, no other rashes. Initial Vital Signs Initial Vital Signs: Vital Signs Temperature 97.5 F L 05/05/24 12:05 Pulse Rate 95 H 05/05/24 12:05 Respiratory Rate 14 05/05/24 12:05 Oxygen Delivery Method Room Air 05/05/24 12:05 Course Orders Ordered: ED Orders 05/05/24 12:16 XR finger LT min 2V Stat 05/05/24 12:50 BMP [Basic Metabolic Panel] Stat CBC Auto Diff [Complete Blood Count AUTO DIFF] Stat Lactate (Lactic Acid) Stat Discontinued Medications Bacitracin (Bacitracin Oint 0.9 Gm Pckt) 1 applic TOP NOW ONE Stop: 05/05/24 14:15 Last Admin: 05/05/24 14:24 Dose: 1 applic Documented By: RB Diphtheria/Tetanus/Acell Pertussis (Tet,Diph,Pertuss(Acell),Vac/Pf 0.5 Ml Syringe) 0.5 ml IM .ONCE ONE Stop: 05/05/24 12:23 Last Admin: 05/05/24 12:30 Dose: 0.5 ml Documented By: RB Doxycycline Hyclate (Doxycycline Hyclate 100 Mg Tablet) 100 mg PO NOW ONE Stop: 05/05/24 14:15 Last Admin: 05/05/24 14:23 Dose: 100 mg Documented By: RB Vital Signs Vital signs: Vital Signs - 8 hr 05/05/24 12:05 05/05/24 14:35 Temperature 97.5 F L 98.1 F Pulse Rate 95 H 78 Respiratory Rate 14 16 Blood Pressure 138/69 Pulse Oximetry 100 Oxygen Delivery Method Room Air Room Air MDM - Wound/Laceration Medical Records Attestation: I reviewed the patient's medical records. Lab Data 05/05/24 12:50 05/05/24 12:50 Labs: Lab Results 05/05/24 Range/Units 12:50 WBC 8.3 (4.5-11.0) X10^3/uL RBC 4.32 L (4.5-5.9) X10^6/uL Hgb 14.3 (13.5-17.5) g/dL Hct 42.0 (41-53) % MCV 97.2 (80-100) fL MCH 33.1 (26-34) PG MCHC 34.0 (30-36) % RDW 13.2 (11.6-14.8) % Plt Count 214 (150-400) X10^3/uL Neut % (Auto) 80.9 H (50-75) % Lymph % (Auto) 10.0 L (25-40) % [place] % (Auto) 7.6 (3-14) % Eos % (Auto) 1.1 L (2-4) % Baso % (Auto) 0.4 (0-2) % Neut # (Auto) 6700 (7216-6484) /uL Lymph # (Auto) 800 L (9254-6184) /uL [place] # (Auto) 600 (0-900) /uL Eos # (Auto) 100 (0-450) /uL Baso # (Auto) 0 (0-100) /uL Sodium 138 (137-145) mmol/L Potassium 3.7 (3.4-5.1) mmol/L Chloride 107 (98-107) mmol/L Carbon Dioxide 25 (22-32) mmol/L BUN 15 (9-20) mg/dL Creatinine 0.96 (0.66-1.25) mg/dL Estimated GFR > 60 (>60) mL/min BUN/Creatinine Ratio 15.6 (6-22) Glucose 127 H (80-110) mg/dL Lactate 1.3 (0.7-2.1) mmol/L Calcium 8.8 (8.4-10.2) mg/dL Imaging Data Finger X-Ray Left: Radiologist's Impression: PROCEDURE: XR FINGER LT MIN 2V INDICATIONS: cut with a table saw 3 days ago TECHNIQUE: AP hand, 2 views of the 3rd finger(s) acquired. COMPARISON: None. FINDINGS: Bones: No fractures or dislocations. No suspicious bony lesions. Soft tissues: No suspicious soft tissue calcifications. No radiopaque foreign body. No soft tissue gas. IMPRESSION: No acute bony abnormality. [facility] Narrative Medical decision making narrative: 78-year-old male with a past medical history of hyperlipidemia, erectile dysfunction, new diagnosis of prostate cancer who presents to the emergency department for left hand laceration that occurred on Thursday from a table saw. Additional independent historian is his family member Della. Differential diagnosis includes but is not limited to laceration, infection, cellulitis, open fracture, crush injury, tendon injury, soft tissue injury, etc. On exam the patient is in no acute distress, nontoxic appearing, vital signs overall appropriate heart rate 95, afebrile. Patient has a laceration on the left 3rd digit, dorsal distal aspect that occurred a few days ago from a table saw. Wound is clearly infected with surrounding cellulitis on the left hand. He is having no fevers, no systemic symptoms, no streaking erythema. We will update tetanus shot, obtain CBC, BMP, lactic given patient's history of cancer. X-ray of middle finger ordered. Ring finger ring removed using lubricant. X-ray left finger shows no acute bony abnormality, no radiopaque foreign body, no soft tissue gas. Lab work overall reassuring with a normal WBC count 8.3, hemoglobin 14.3, hematocrit 42.0 sodium 138 potassium 3.7, BUN 15 creatinine 0.96, glucose 127, normal lactate 1.3. Case was discussed with attending ED physician, Dr. Marvin. Due to the age of the patient's wound, we will allow to heal by secondary intention from the base up. We will treat left hand wound infection/cellulitis with doxycycline to provide MRSA coverage given patient's history of cancer/possible immunosuppression. Patient's wound was cleansed extensively, bacitracin applied, nonadherent dressing applied. Discussed proper wound care with the patient, signs and symptoms of worsening infection to return to the ED for, side effects/adverse reactions of antibiotics, importance of completing full course of antibiotics, follow up with PCP and orthopedics for further evaluation. Patient verbalized understanding of all information is agreeable to the plan. He is stable for discharge home. Discharge Plan Departure Patient Disposition: Home Clinical Impression: Cellulitis of hand, left Laceration of left middle finger Qualifiers: Encounter type: initial encounter Damage to nail status: without damage Foreign body presence: without foreign body Qualified Code(s): S61.213A - Laceration without foreign body of left middle finger without damage to nail, initial encounter Instructions: DI for Wound Infection Activity Restrictions/Additional Instructions: Thank you for coming into the emergency department today. You were evaluated for a laceration to the left middle finger. Because this wound happened a few days ago, we can not stitch it closed and it needs to heal on its own from the bottom up. Your lab work and x-ray were both reassuring, there is no fracture of the bone. The hand is infected because of the wound however. You have been prescribed 1 week of antibiotics which you need to complete in addition you need to wash the wound every day and keep it covered with antibiotic ointment and gauze. Please call to schedule an appointment with an orthopedic doctor for further evaluation. You may call [facility] at [phone] for follow up. Please follow up with your primary care doctor within the next 2-3 days for ER follow-up. (If you do not have a PCP you can call [phone]. ?to schedule an appointment with an [facility] Primary Care Provider) IF YOU DEVELOP ANY NEW OR WORSENING SYMPTOMS, RETURN TO THE ER! Please read the attached instructions, they highlight more specific treatments and interventions for you at home. Thank you for letting me participate in your care, Genesis Singh PA-C Prescriptions: New doxycycline hyclate 100 mg capsule 100 mg PO BID 7 Days Qty: 14 0RF No Action pravastatin 20 mg tablet 20 mg PO BEDTIME Qty: 90 3RF aspirin 81 mg tablet,chewable 81 mg PO DAILY sildenafil (pulm.hypertension) 20 mg tablet 20 - 100 mg PO DAILY PRN (Reason: sexual activity) Qty: 30 11RF Rx Instructions: Take 30 minutes prior to sexual activity. Referrals: Magy Ocasio ARNP [Primary Care Provider] - Stand Alone Forms: Patient Portal/API/Survey
[2024-05-05] MEDS: TET,DIPH,PERTUSS(ACELL),VAC/PF 0.5 ML SYRINGE IM (12:30)
[2024-05-05 13:08] LABS: Add Manual Diff / Slide Review NO; Basophils Absolute Auto 0 /uL (0-100); Basophils Percent Auto 0.4 % (0-2); Eosinophils Absolute Auto 100 /uL (0-450); Eosinophils Percent Auto 1.1 % (2-4); Hemoglobin 14.3 g/dL (13.5-17.5); Lymphocytes Absolute Auto 800 /uL (1100-4500); Mean Corpuscular Hemoglobin 33.1 PG (26-34); Mean Corpuscular Volume 97.2 fL (80-100); Monocytes Absolute Auto 600 /uL (0-900); Monocytes Percent Auto 7.6 % (3-14); Neutrophils Absolute Auto 6700 /uL (1500-7000); Neutrophils Percent Auto 80.9 % (50-75); Platelet Count 214 X10^3/uL (150-400); Red Blood Cell Count 4.32 X10^6/uL (4.5-5.9); Red Cell Distribution Width 13.2 % (11.6-14.8); White Blood Cell Count 8.3 X10^3/uL (4.5-11.0)
[2024-05-05 13:18] LABS: Lactate (Lactic Acid) 1.3 mmol/L (0.7-2.1)
[2024-05-05 13:19] LABS: BUN Creatinine Ratio 15.6 (6-22); Blood Urea Nitrogen 15 mg/dL (9-20); Calcium 8.8 mg/dL (8.4-10.2); Carbon Dioxide 25 mmol/L (22-32); Chloride 107 mmol/L (98-107); Estimated Glomerular Filt Rate > 60 mL/min (>60); Glucose 127 mg/dL (80-110); HEMOLYSIS < 15 (0-50); Potassium 3.7 mmol/L (3.4-5.1); Sodium 138 mmol/L (137-145)
[2024-05-05] MEDS: DOXYCYCLINE HYCLATE 100 MG TABLET PO (14:23)
[2024-05-05] MEDS: BACITRACIN OINT 0.9 GM PCKT 1 APPLIC TOP (14:24)
[2024-05-05 14:35] VITALS: BP 138/69; PULSE 78; RESP 16; TEMP 36.7; O2SAT 100
== END 2024-05-05 14:36 | disposition home or self-care (01) ==
PROVIDERS: Emergency Provider Physician Assistant; PCP Nurse Practitioner
DX: S61.213A Laceration without foreign body of left middle finger without damage to nail, initial encounter (principal); L03.114 Cellulitis of left upper limb; C61 Malignant neoplasm of prostate; E78.5 Hyperlipidemia, unspecified; Z79.82 Long term (current) use of aspirin; Z86.73 Personal history of transient ischemic attack (TIA), and cerebral infarction without residual deficits; W27.0XXA Contact with workbench tool, initial encounter; Z23 Encounter for immunization
CPT/HCPCS: 73140; 80048; 83605; 85025; 90471; 99284; 90715